=== PATIENT | male | born 1965 | race Two or more races ===

== ENCOUNTER 2024-09-07 10:30 | Outpatient (RCR) | payer MEDICAID, SELFPAY ==
--- NOTE | 2024-08-24 10:09 | PTNOTE_ITS ---
PT OP Initial Eval Patient Information Outpatient Physical Therapy Treatment Date: 08/24/24 Visit Reasons: low back pain Medical Diagnosis: M54.9 Treatment Dx #1: LBP with radiculopathy Start of Care: 08/24/24 Date of Onset: 3 yrs ago Smoking Status Smoking Status: Current some day smoker Cessation Counseling Provided: TRACEY was advised that quitting smoking is the single most important factor to protect the health of themselves and their family. Discussed the benefits of quitting smoking with patient. Encouraged patient to quit smoking and provided Cessation assistance materials and resources. Tobacco Use: Cigarette Years smoked: 10 Are you interested in quitting?: Yes Would you like additional Smoking Cessation Counseling?: No Initial Assessment Subjective: Pt is 59 yr old senegalese speaking male with c/o LBP and LE pain x3 yrs. Pt reports the LE's hurt behind the LE's and knees and the R calf. Increased pain limits lifting and bending tolerances. PMH: smoker, HTN, DM Imaging: with provider Pt goal: to get rid of the pain Objective: ?Trunk ArOM: ? B SB 50% of normal with pain ? Extension: 20% with pain around L4-5, L5-S1 ? Flexion: 5 from floor with LBP ? B rotation: 60% with pain ? R SLR ROM: 45 deg. L SLR: 50 deg with posterior knee neural tension, LBP ? TTP: moderate paraspinals L5-S1 ? Neuro: R SLR: positive Assessment: ? Pt presents with trunk flexion sensitivity and overlying myofascial pain ? and TTP around L5-S1 consistent with ? lower lumbar disc bulge(s) with radiculopathy. Pt requires skilled therapy in order to decrease ? pain and improve sitting/standing tolerance and has fair rehab potential. Eval ?followed by [facility] printout. Short Term and Senior Living Goals 1. Ind with [facility] ? 2. Improved sitting/standing tolerance to 30 minutes with <=4/10 LBP ? 3. Decreased lower paraspinal TTP from mod to min 4. Improved HH chore tolerance to at least 30 minutes with <=3/10 LBP and no ?increase in LE ssx Treatment Plan 1. Manual therapy ? 2. Therex ? 3. Modalities as indicated, moist heat, ice, estim, mechanical traction Frequency and Duration: 1-2x a week for 12 visits Certification Dates: 08/24/24 to 11/22/24 Procedure Charges OP PT Eval Mod Complex 30 minutes: Yes
--- NOTE | 2024-08-31 10:54 | PT.ODAYNRPT ---
PT Outpatient Daily Note OP Daily Note Outpatient Physical Therapy Treatment Date: 08/31/24 Visit Reasons: low back pain Subjective: Same as time of evaluation Objective: See F/S for therex Mech traction L/S x7' at 45 lbs Assessment: Low pain with prone extension and traction Plan: Continue per POC Length of Time (minutes) of Treatment: 30 Minutes Procedure Charges Therapeutic Exercise 30 minutes: Yes
--- NOTE | 2024-09-07 13:14 | PT.ODAYNRPT ---
PT Outpatient Daily Note OP Daily Note Outpatient Physical Therapy Treatment Date: 09/07/24 Visit Reasons: low back pain Subjective: Less LBP since last visit Objective: SEe F/S for therex MT: [facility] L/S with flexbar x7' Assessment: Good demo of posterior pelvic tilting Plan: Continue per POC Length of Time (minutes) of Treatment: 30 Minutes Procedure Charges Therapeutic Exercise 30 minutes: Yes
== END 2024-09-17 23:59 | disposition home or self-care (01) ==
LOC: CPTX 10:30
PROVIDERS: PCP Student in an Organized Health Care Education/Training Program; Referring Provider Student in an Organized Health Care Education/Training Program; Visit Provider Student in an Organized Health Care Education/Training Program
DX: M54.16 Radiculopathy, lumbar region (principal); Z71.6 Tobacco abuse counseling; F17.210 Nicotine dependence, cigarettes, uncomplicated
CPT/HCPCS: 97110; 97162

== ENCOUNTER 2024-10-03 09:30 | Outpatient (RCR) | payer MEDICAID, SELFPAY ==
--- NOTE | 2024-09-19 12:30 | PT.ODAYNRPT ---
PT Outpatient Daily Note OP Daily Note Outpatient Physical Therapy Treatment Date: 09/19/24 Visit Reasons: Low back pain Subjective: Less LBP but LE's still hurt in the back part Objective: See F/S for therex Assessment: Posterior LE pain doesn't change with trunk AROM but increased LBP with extension ROM Plan: Continue per POC Length of Time (minutes) of Treatment: 30 Minutes Procedure Charges Therapeutic Exercise 30 minutes: Yes
--- NOTE | 2024-09-26 14:51 | PT.ODAYNRPT ---
PT Outpatient Daily Note OP Daily Note Outpatient Physical Therapy Treatment Date: 09/26/24 Visit Reasons: Low back pain Subjective: pt. reports improvements with low back pain with therapy Objective: see flowsheet for ther-ex STM with flexbar L/S x7 min Assessment: STM with flexbar L/S x7 min improves pain Plan: continue PT per POC Length of Time (minutes) of Treatment: 30 Minutes Procedure Charges Therapeutic Exercise 30 minutes: Yes
--- NOTE | 2024-10-03 09:44 | PT.ODAYNRPT ---
PT Outpatient Daily Note OP Daily Note Visit Reasons: Low back pain
--- NOTE | 2024-10-03 09:51 | PT.ODS1RPT ---
PT OP Progress/Discharge Note Date of Service: 10/03/24 Progress Note/DC Note Progress Note/Discharge Note: DC Note Patient Information Visit Reasons: Low back pain Service Continue Service or Discharge: Discharge Discharge Date: 10/03/24 Status Subjective: No LBP, doing HEP Objective: See F/S for therex Assessment: Pt attended 5/ Rx sessions with very good progress to meet therapy goals. Pt isn't having LBP with standing and sitting for more than 30 mins to meet that goal. Pt is independent with HEP. Pt has decreased lower paraspinal TTP to none to meet that goal and he can do HH chores without LBP. Plan: D/C with [facility] Procedure Charges Therapeutic Exercise 30 minutes: Yes
== END 2024-10-18 23:59 | disposition home or self-care (01) ==
LOC: CPTX 09:30
PROVIDERS: PCP Student in an Organized Health Care Education/Training Program; Referring Provider Student in an Organized Health Care Education/Training Program; Visit Provider Student in an Organized Health Care Education/Training Program
DX: M54.16 Radiculopathy, lumbar region (principal)
CPT/HCPCS: 97110